=== PATIENT | female | born 1945 | race Caucasian/White ===

== ENCOUNTER 2020-10-06 22:10 | Inpatient (IN) | payer OTHER, MEDICARE ==
[~2020-10-06] VITALS: Ht 170.2 cm; Wt 86.4 kg
[2020-10-06] MEDS ORDERED: DEXAMETHASONE 6 MG TABLET PO ONE (23:30)
[2020-10-06] MEDS ORDERED: acetaminophen 325mg tablet PO ONE (23:30)
[2020-10-06] MEDS ORDERED: normal saline 1000ML IV soln IVB ONE (23:35)
[2020-10-07 00:16] LABS: BASOPHILS % (AUTO) 0.3 % (0-1); EOSINOPHILS % (AUTO) 0.1 % (0-6); HEMATOCRIT 39.4 % (35.0-45.0); HEMOGLOBIN 13.7 g/dl (12.0-16.0); LYMPHOCYTES # (AUTO) 0.6 X10'3 (1.1-4.8); LYMPHOCYTES % (AUTO) 8.1 % (21-51); MEAN CORPUSCULAR HEMOGLOBIN 29.9 PG (27.0-31.0); MEAN CORPUSCULAR HGB CONC 34.9 g/dL (33.0-36.5); MEAN CORPUSCULAR VOLUME 85.6 FL (78-98); MEAN PLATELET VOLUME 8.7 FL (7.4-10.4); MONOCYTES # (AUTO) 0.7 X10'3 (0-0.9); NEUTROPHILS # (AUTO) 6.1 X10'3 (1.8-7.7); NEUTROPHILS % (AUTO) 82.5 % (42-75); PLATELET COUNT 174 X10'3 (140-440); RED CELL DISTRIBUTION WIDTH 13.7 % (11.5-14.5); WHITE BLOOD COUNT 7.4 X10'3 (4.5-11.0)
[2020-10-07 00:53] LABS: ALANINE AMINOTRANSFERASE 43 U/L (12-78); ALBUMIN 3.1 G/DL (3.4-5.0); ALBUMIN/GLOBULIN RATIO 0.9 (1.1-1.5); ALKALINE PHOSPHATASE 77 IU/L (46-116); ANION GAP 8 (8-16); ASPARTATE AMINO TRANSFERASE 44 U/L (10-37); BILIRUBIN,TOTAL 0.5 MG/DL (0.1-1.0); BLOOD UREA NITROGEN 18 MG/DL (7-18); BUN/CREATININE RATIO 18.9 (6.6-38.0); CALCIUM 8.3 MG/DL (8.5-10.1); CHLORIDE 98 MMOL/L (99-107); CREATININE 0.95 MG/DL (0.40-0.90); GLUCOSE 114 MG/DL (70-104); POTASSIUM 4.4 MMOL/L (3.5-5.1); SODIUM 128 MMOL/L (135-145); TOTAL PROTEIN 6.6 G/DL (6.4-8.2); eGFR 58 ML/MIN
[2020-10-07 00:59] LABS: C-REACTIVE PROTEIN 5.04 MG/DL (0.0-0.5); FERRITIN 774 NG/ML (8-252); LACTATE DEHYDROGENASE 286 U/L (81-234)
[2020-10-07] MEDS ORDERED: LYSI500T11 PO (00:59)
[2020-10-07] MEDS ORDERED: SYN0.088T PO ×2 (01:06→01:11)
[2020-10-07] MEDS ORDERED: METO-384 PO (01:06)
[2020-10-07] MEDS ORDERED: LEVO100T PO ×2 (01:11→01:12)
[2020-10-07] MEDS ORDERED: MELA1TAB28 PO (01:13)
[2020-10-07] MEDS ORDERED: APIX5TAB3 PO (01:13)
--- NOTE | 2020-10-07 01:14 | NUR ---
family is taking medications home.
[2020-10-07 01:20] LABS: D-DIMER 0.52 MG/L FEU (0-0.50)
[2020-10-07] MEDS ORDERED: REMDESIVIR INJ 100 MG in normal saline 100ml IV soln 100 ML IV STA (01:25)
--- NOTE | 2020-10-07 02:25 | NUR ---
GLORIA (NIECE): [phone] JORDANA (DAUGHTER): [phone]
[2020-10-07] MEDS ORDERED: ondansetron/PF 4mg/2ml inj IV PRN (03:00)
[2020-10-07] MEDS: normal saline 1000ml 1,000 ML IV SCH ×2 (03:00→17:18)
[2020-10-07] MEDS ORDERED: magnesium hydroxide 30ml (MOM) UD suspension PO PRN (03:00)
[2020-10-07] MEDS ORDERED: potassium Cl 40MEQ/1/2NS 520ml 520 ML IV PRN ×2 (03:00)
[2020-10-07] MEDS ORDERED: mag hydrox/Alum hydrox/simeth 30ml oral suspension PO PRN (03:00)
[2020-10-07] MEDS ORDERED: magnesium Cl slow-release 64mg tablet PO PRN (03:00)
[2020-10-07] MEDS ORDERED: acetaminophen 325mg tablet PO PRN ×2 (03:00)
[2020-10-07] MEDS ORDERED: magnesium 4gm in 100ml NS 100 ML IV PRN (03:00)
[2020-10-07] MEDS ORDERED: potassium Cl 20 mEq SR tablet PO PRN ×2 (03:00)
[2020-10-07] MEDS ORDERED: magnesium 2GM in 50ml NS 50 ML IV PRN (03:00)
[2020-10-07] MEDS ORDERED: iohexol 350MG/ML 100ml bottle IV ONE (03:05)
[2020-10-07] MEDS ORDERED: heparin, porcine 5000 units/ml vial SQ SCH (08:00)
[2020-10-07] MEDS ORDERED: levoFLOXACIN-Levaquin 500mg/D5 100 ML IV SCH (08:00)
[2020-10-07] MEDS: K and/or MAG REPLACEMENT MC SCH ×2 (08:00→19:26)
[2020-10-07 08:46] LABS: CLARITY,URINE CLEAR (Clear); COLOR,URINE STRAW (Yellow); GLUCOSE, URINE NEGATIVE (Neg); KETONES,URINE NEGATIVE (Neg); LEUKOCYTE ESTERASE ,URINE NEGATIVE (Neg); NITRITES, URINE NEGATIVE (Neg); OCCULT BLOOD,URINE TRACE-LYSED (Neg); PH,URINE 6.5 (4.8-8.0); PROTEIN,URINE NEGATIVE (Neg); UROBILINOGEN,URINE 0.2 E.U/dL (0.2-1.0)
[2020-10-07 08:47] LABS: UA COLLECTION TYPE CLN CATCH MIDSTREAM
[2020-10-07 08:51] LABS: BACTERIA,URINE NONE SEEN /HPF (Neg); MUCUS STRANDS NONE SEEN /LPF (Neg); RBC,URINE 0-2 /HPF (0-2); SQUAMOUS EPITHELIAL CELL,UR FEW /LPF (FEW); WBC,URINE 0-4 /HPF (0-4)
[2020-10-07] MEDS: apixaban 5mg tablet PO SCH ×2 (10:15→19:25)
[2020-10-07] MEDS: dexamethasone 4mg/ml inj IV SCH ×2 (10:15→19:24)
[2020-10-07] MEDS: levoTHYROXINE 25mcg tablet PO SCH (10:15)
[2020-10-07] MEDS: metoprolol succinate 25mg (24-HOUR) SR. Tablet PO SCH ×2 (10:16→10:18)
[2020-10-07] MEDS: lactobacillus rhamnosus 10,000 MMU CELLS/CAPSULE PO SCH (19:25)
[2020-10-07] MEDS: Melatonin 3mg tablet PO SCH (19:25)
[2020-10-07] MEDS ORDERED: temazepam 15mg capsule PO PRN (21:00)
--- NOTE | 2020-10-08 00:40 | NUR ---
Patient in room ED 3. I have received report from GRETCHEN KISER and had the opportunity to ask questions and will assume patient care.
[2020-10-08 01:49] VITALS: BP 135/64
[2020-10-08 02:00] VITALS: BP 132/52
[2020-10-08] MEDS: normal saline 1000ml 1,000 ML IV SCH ×2 (05:57→20:46)
--- NOTE | 2020-10-08 06:35 | NUR ---
Problems reprioritized. Patient report given, questions answered & plan of care reviewed with NICOLETTE KISER.
[2020-10-08] MEDS: K and/or MAG REPLACEMENT MC SCH ×2 (08:00→20:00)
[2020-10-08 08:15] LABS: BASOPHILS % (AUTO) 0.2 % (0-1); EOSINOPHILS % (AUTO) 0 % (0-6); HEMATOCRIT 40.1 % (35.0-45.0); HEMOGLOBIN 13.8 g/dl (12.0-16.0); LYMPHOCYTES # (AUTO) 0.8 X10'3 (1.1-4.8); LYMPHOCYTES % (AUTO) 4.7 % (21-51); MEAN CORPUSCULAR HEMOGLOBIN 29.9 PG (27.0-31.0); MEAN CORPUSCULAR HGB CONC 34.4 g/dL (33.0-36.5); MEAN PLATELET VOLUME 8.9 FL (7.4-10.4); MONOCYTES # (AUTO) 1.3 X10'3 (0-0.9); MONOCYTES % (AUTO) 8.1 % (2-12); NEUTROPHILS # (AUTO) 13.9 X10'3 (1.8-7.7); PLATELET COUNT 214 X10'3 (140-440); RED BLOOD COUNT 4.61 X10'6 (4.20-5.60); RED CELL DISTRIBUTION WIDTH 13.9 % (11.5-14.5); WHITE BLOOD COUNT 15.9 X10'3 (4.5-11.0)
[2020-10-08 08:18] VITALS: BP 132/52
[2020-10-08 08:39] LABS: ALANINE AMINOTRANSFERASE 40 U/L (12-78); ALBUMIN 2.9 G/DL (3.4-5.0); ALBUMIN/GLOBULIN RATIO 0.9 (1.1-1.5); ALKALINE PHOSPHATASE 76 IU/L (46-116); ANION GAP 9 (8-16); ASPARTATE AMINO TRANSFERASE 36 U/L (10-37); BILIRUBIN,TOTAL 0.3 MG/DL (0.1-1.0); BLOOD UREA NITROGEN 17 MG/DL (7-18); BUN/CREATININE RATIO 17.9 (6.6-38.0); CALCIUM 8.8 MG/DL (8.5-10.1); CHLORIDE 104 MMOL/L (99-107); CREATININE 0.95 MG/DL (0.40-0.90); GLUCOSE 135 MG/DL (70-104); MAGNESIUM 2.3 MG/DL (1.5-2.4); POTASSIUM 4.2 MMOL/L (3.5-5.1); SODIUM 136 MMOL/L (135-145); TOTAL CARBON DIOXIDE 22.7 MMOL/L (24-32); TOTAL PROTEIN 6.3 G/DL (6.4-8.2); eGFR 58 ML/MIN
[2020-10-08] MEDS: levoTHYROXINE 25mcg tablet PO SCH (08:49)
[2020-10-08] MEDS: lactobacillus rhamnosus 10,000 MMU CELLS/CAPSULE PO SCH ×2 (08:49→20:45)
[2020-10-08] MEDS: apixaban 5mg tablet PO SCH ×2 (08:49→20:45)
[2020-10-08] MEDS: dexamethasone 4mg/ml inj IV SCH ×2 (09:25→20:47)
[2020-10-08 11:00] VITALS: BP 132/52
[2020-10-08 17:28] VITALS: BP 123/58
[2020-10-08] MEDS: Melatonin 3mg tablet PO SCH (20:45)
[2020-10-08 22:00] VITALS: BP 111/51
[2020-10-09 02:00] VITALS: BP 128/58
[2020-10-09 07:00] VITALS: BP 110/50
[2020-10-09] MEDS: levoTHYROXINE 25mcg tablet PO SCH ×2 (07:00→07:43)
[2020-10-09] MEDS: lactobacillus rhamnosus 10,000 MMU CELLS/CAPSULE PO SCH (07:43)
[2020-10-09] MEDS: dexamethasone 4mg/ml inj IV SCH (07:43)
[2020-10-09] MEDS: metoprolol succinate 25mg (24-HOUR) SR. Tablet PO SCH (07:44)
[2020-10-09 09:08] LABS: BASOPHILS % (AUTO) 0.1 % (0-1); EOSINOPHILS % (AUTO) 0 % (0-6); HEMATOCRIT 39.7 % (35.0-45.0); HEMOGLOBIN 13.6 g/dl (12.0-16.0); LYMPHOCYTES # (AUTO) 0.8 X10'3 (1.1-4.8); LYMPHOCYTES % (AUTO) 4.7 % (21-51); MEAN CORPUSCULAR HGB CONC 34.3 g/dL (33.0-36.5); MEAN CORPUSCULAR VOLUME 87.3 FL (78-98); MEAN PLATELET VOLUME 9.1 FL (7.4-10.4); MONOCYTES % (AUTO) 5.4 % (2-12); NEUTROPHILS # (AUTO) 16.2 X10'3 (1.8-7.7); NEUTROPHILS % (AUTO) 89.8 % (42-75); PLATELET COUNT 236 X10'3 (140-440); RED BLOOD COUNT 4.54 X10'6 (4.20-5.60); RED CELL DISTRIBUTION WIDTH 13.8 % (11.5-14.5)
[2020-10-09 09:35] LABS: ALANINE AMINOTRANSFERASE 58 U/L (12-78); ALBUMIN 2.9 G/DL (3.4-5.0); ALBUMIN/GLOBULIN RATIO 0.8 (1.1-1.5); ALKALINE PHOSPHATASE 81 IU/L (46-116); ASPARTATE AMINO TRANSFERASE 41 U/L (10-37); BILIRUBIN,TOTAL 0.4 MG/DL (0.1-1.0); CALCIUM 8.8 MG/DL (8.5-10.1); CHLORIDE 103 MMOL/L (99-107); CREATININE 0.91 MG/DL (0.40-0.90); GLUCOSE 106 MG/DL (70-104); MAGNESIUM 2.2 MG/DL (1.5-2.4); POTASSIUM 4.2 MMOL/L (3.5-5.1); TOTAL CARBON DIOXIDE 24.3 MMOL/L (24-32); TOTAL PROTEIN 6.5 G/DL (6.4-8.2); eGFR 60 ML/MIN
[2020-10-09 09:45] LABS: ANION GAP 10 (8-16); SODIUM 137 MMOL/L (135-145)
[2020-10-09 09:46] LABS: BLOOD UREA NITROGEN 18 MG/DL (7-18); BUN/CREATININE RATIO 19.8 (6.6-38.0)
[2020-10-09 11:16] VITALS: BP 114/53
[2020-10-09] MEDS ORDERED: DEC4T PO (12:13)
[2020-10-09] MEDS ORDERED: CIPR-202 PO (12:13)
--- NOTE | 2020-10-09 14:12 | NUR ---
Patient is able to hold a conversation at , Sat 96%. Patient has all education in patient handout booklet. Patient aware that she is to stay isolated and has education with information on how long and how to isolate/quarantine. IV has been discontinued. Patient has scrip [facility]. Patient is able to dress herself.
--- NOTE | 2020-10-09 14:12 | NUR ---
Patient is discharged on paper and waiting for her ride for pickup
--- NOTE | 2020-10-09 15:26 | NUR ---
Patient discharged with armando Nieto from ER. All education completed with Emilia via phone and patient. All questions asked and answered. Verbal acknowledgement completed by patient of all education and instructions. VS stable. Patient dressed self and tolerated well. A&Ox4. RA during complete admit.
== END 2020-10-09 15:20 | disposition home or self-care (01) | DRG 177 ==
LOC: ER 22:11 → ED HOLD 10-07 03:15 → COVID IP 10-08 00:50
PROVIDERS: ADMIT Internal Medicine; ATTEND Family Medicine
PROC: B32T1ZZ Computerized Tomography (CT Scan) of Left Pulmonary Artery using Low Osmolar Contrast (ICD-10-PCS; principal; 2020-10-07)
PROC: B3201ZZ Computerized Tomography (CT Scan) of Thoracic Aorta using Low Osmolar Contrast (ICD-10-PCS; 2020-10-07)
PROC: B32S1ZZ Computerized Tomography (CT Scan) of Right Pulmonary Artery using Low Osmolar Contrast (ICD-10-PCS; 2020-10-07)
DX: U07.1 COVID-19 (principal); J12.82 Pneumonia due to coronavirus disease 2019; E87.1 Hypo-osmolality and hyponatremia; E03.9 Hypothyroidism, unspecified; I10 Essential (primary) hypertension; I48.91 Unspecified atrial fibrillation; Z85.850 Personal history of malignant neoplasm of thyroid; Z88.8 Allergy status to other drugs, medicaments and biological substances; Z88.1 Allergy status to other antibiotic agents
CPT/HCPCS: 36415; 71045; 71275; 80053; 81001; 82728; 82948; 83605; 83615; 83735; 83880; 84145; 84443; 84484; 85025; 85379; 85384; 86140; 87040; 87081; 93005; 97110; 97116; 97162; 97530; 99285; G0378; J1100; J1956; J7030; J8540; Q9967